=== PATIENT | female | born 2000 | race Caucasian/White ===

== ENCOUNTER 2023-08-20 14:52 | Emergency (ER) | payer OTHER ==
[2023-08-20 15:05] VITALS: O2SAT 98
[2023-08-20 15:44] VITALS: BP 140/77
[2023-08-20 15:52] LABS: BILIRUBIN,URINE NEGATIVE (NEGATIVE); GLUCOSE, URINE (UA) 500 mg/dL (NEGATIVE); KETONES,URINE (UA) NEGATIVE (NEGATIVE); LEUKOCYTE ESTERASE, URINE MODERATE (NEGATIVE); NITRITE,URINE POSITIVE (NEGATIVE); OCCULT BLOOD,URINE MODERATE (NEGATIVE); PROTEIN,URINE 100 mg/dL (NEGATIVE); UROBILINOGEN,URINE 0.2 (NORMAL) E.U./dL (NORMAL)
[2023-08-20] MEDS: KETOROLAC 30 MG/ML VIAL IVP STA (15:55)
[2023-08-20] MEDS: ACETAMINOPHEN 325 MG TABLET PO STA (15:56)
[2023-08-20 15:57] LABS: CLARITY,URINE HAZY (CLEAR); HCG UR QUAL NEGATIVE
[2023-08-20 16:02] LABS: BACTERIA,URINE Moderate /HPF (None Seen); SQUAMOUS EPITHELIAL CELL,UR RARE Squamous (<= Few); WBC,URINE >25 /HPF (0-5)
[2023-08-20] MEDS ORDERED: cefTRIAXone 1 GM in SODIUM CHLORIDE 0.9% MINIBAG 100 ML IV STA (16:11)
--- NOTE | 2023-08-20 16:26 | ED Physician Documentation ---
PD HPI FEMALE - Stated complaint Stated Complaint: BACK PX,COLE,CHILLS - Chief complaint Chief Complaint: Abd Pain - Additional information Additional information: 23-year-old female with no pertinent past medical history presents emergency department for 3 to 4 days of dysuria and today new right flank pain. She is not having chills at home she thinks it has been she has been having fevers without unsure. She says that she does have a new sexual partner and recently tried anal sex and did not cleanse between anal and vaginal penetration. PD PAST MEDICAL HISTORY - Past Medical History Past Medical History: Yes Psych: Depression, Anxiety - Past Surgical History Past Surgical History: No - Present Medications Home Medications: Ambulatory Orders Medication Instructions Recorded Confirmed Phenazopyridine HCl [Pyridium] 100 mg PO TID 2 Days #6 tablet 08/20/23 Sulfamethox/Trimeth 800/160 1 tablet PO BID 10 Days #20 tablet 08/20/23 [Bactrim Ds] - Allergies Allergies/Adverse Reactions: Allergies Allergy/AdvReac Type Severity Reaction Status Date / Time No Known Drug Allergies Allergy Verified 08/20/23 14:54 - Social History Does the pt smoke?: No Smoking Status: Never smoker Does the pt drink ETOH?: Yes Does the pt have substance abuse?: No - Immunizations Immunizations are current?: Yes - POLST Patient has POLST: No PD ED PE NORMAL - Vitals Vital signs reviewed: Yes - General General: Alert and oriented X 3, No acute distress, Well developed/nourished - HEENT HEENT: Atraumatic, PERRL, EOMI - Cardiac Cardiac: RRR, No murmur, No gallop, Strong equal pulses - Respiratory Respiratory: No respiratory distress, Clear bilaterally - Back Back: Other (Right CVA tenderness) Results - Vitals Vitals: Vital Signs - 24 hr 08/20/23 08/20/23 14:54 14:57 Temperature 36.6 C 101.7 C H Heart Rate 94 91 Respiratory 16 24 Rate Blood Pressure 135/70 H 140/77 H O2 Saturation 98 98 Oxygen O2 Source Room air - Labs Labs: Laboratory Tests 08/20/23 15:30 Urine Color YELLOW Urine Clarity HAZY Urine pH 6.0 Ur Specific [place] 1.020 Urine Protein 100 H Urine Glucose (UA) 500 H Urine Ketones NEGATIVE Urine Occult Blood MODERATE H Urine Nitrite POSITIVE H Urine Bilirubin NEGATIVE Urine Urobilinogen 0.2 (NORMAL) Ur Leukocyte Esterase MODERATE H Urine RBC 6-10 H Urine WBC >25 H Ur Squamous Epith Cells RARE Squamous Urine Bacteria Moderate H Ur Microscopic Review INDICATED Urine Culture Comments INDICATED Urine HCG, Qual NEGATIVE PD Medical Decision Making - ED course ED course: 23-year-old female presents emergency department for dysuria and right flank pain. Differentials include but are not limited to urinary tract infection, pyelonephritis, renal calculi, ovarian torsion. Urinalysis is positive for leukocytes and nitrites indicating urinary tract infection urine was sent for cultures. Given her right CVA tenderness I believe that patient is experiencing symptoms of pyelonephritis.She received a one-time dose of intramuscular Rocephin here in the emergency department and is started on antibiotic Bactrim outpatient. She is also been given Toradol for her pain as well as Pyridium for the dysuria. Patient was given ER return precautions. All questions answered I believe that she is safe for discharge at this time. Departure - Departure Disposition: 01 Home, Self Care Clinical Impression: Pyelonephritis UTI (urinary tract infection) Qualifiers: Urinary tract infection type: acute pyelonephritis Qualified Code(s): N10 - Acute pyelonephritis Instructions: Pyelonephritis Dc Prescriptions: Sulfamethox/Trimeth 800/160 [Bactrim Ds] 1 tablet PO BID 10 Days #20 tablet Phenazopyridine HCl [Pyridium] 100 mg PO TID 2 Days #6 tablet Comments: Thank you for trusting us with your care, we have evaluated you for your left flank pain and UTI symtpoms. We will culture your urine, the results should be done in 48-72 hours. If an antibiotic change is necessary we will call you. Return if worse in the meantime, especially if you develop increasing flank pain, fevers, or cannot keep down the medication. I have [facility] [place] you will take this twice a day for the next 10 days I have also sent a medication called Pyridium this is the medication that will turn your urine bright orange. Make sure that you are staying plenty well-hydrated and have a low threshold to come back to the emergency department for any of the worsening above symptoms. Forms: PCP List Discharge Date/Time: 08/20/23 17:02
[2023-08-20] MEDS ORDERED: LIDOCAINE 1% 2 ML VIAL MC ONE (16:45)
[2023-08-20] MEDS: PHENAZOPYRIDINE 100 MG TABLET PO STA (16:46)
[2023-08-20] MEDS: cefTRIAXone 1 GM VIAL IM STA (16:56)
== END 2023-08-20 17:02 | disposition home or self-care (01) ==
LOC: ED 14:52
DX: N39.0 Urinary tract infection, site not specified (principal); N12 Tubulo-interstitial nephritis, not specified as acute or chronic
CPT/HCPCS: 81001; 81003; 81025; 87086; 87181; 96374; 99283

== ENCOUNTER 2023-08-20 22:01 | Emergency (ER) | payer OTHER ==
[2023-08-20] MEDS: ONDANSETRON 4 MG/2 ML VIAL IVP STA (22:42)
[2023-08-20] MEDS: CIPROFLOXACIN 400 MG/200 ML 400 MG/200 ML BAG IV STA (22:45)
[2023-08-20 22:46] LABS: BASOPHILS # (AUTO) 0.1 10^3/uL (0.0-0.1); BASOPHILS % (AUTO) 0.4 %; EOSINOPHILS % (AUTO) 0.2 %; HCT - HEMATOCRIT 42.7 % (37.0-47.0); HGB - HEMOGLOBIN 14.3 g/dL (12.0-16.0); LYMPHOCYTES # (AUTO) 0.8 10^3/uL (1.5-3.5); LYMPHOCYTES % (AUTO) 5.8 %; MEAN CORPUSCULAR HEMOGLOBIN 29.2 pg (27.0-31.0); MEAN CORPUSCULAR HGB CONC 33.5 g/dL (32.0-36.0); MEAN CORPUSCULAR VOLUME 87.3 fL (81.0-99.0); MEAN PLATELET VOLUME 9.5 fL (7.9-10.8); MONOCYTES # (AUTO) 1.1 10^3/uL (0.0-1.0); MONOCYTES % (AUTO) 7.7 %; NEUTROPHILS # (AUTO) 12.1 10^3/uL (1.5-6.6); NEUTROPHILS % (AUTO) 85.6 %; PLT - PLATELET COUNT 312 10^3/uL (130-450); RED BLOOD COUNT 4.89 10^6/uL (4.20-5.40); RED CELL DISTRIBUTION WIDTH 12.7 % (12.0-15.0); WHITE BLOOD COUNT 14.1 x10^3/uL (4.8-10.8)
[2023-08-20] MEDS: SODIUM CHLORIDE 0.9% 1,000 ML IV STA (22:47)
[2023-08-20 23:06] LABS: ALBUMIN 4.5 g/dL (3.2-5.5); ALBUMIN/GLOBULIN RATIO 1.6 (1.0-2.2); BILIRUBIN,TOTAL 0.9 mg/dL (0.2-1.0); CALCIUM 10.1 mg/dL (8.5-10.3); CREATININE 0.7 mg/dL (0.6-1.3); POTASSIUM 3.5 mmol/L (3.5-4.5); TOTAL PROTEIN 7.3 g/dL (6.4-8.9)
--- NOTE | 2023-08-20 23:33 | ED Physician Documentation ---
History of Present Illness - Stated complaint Stated Complaint: CHILLS/NAUSEA - Chief complaint Chief Complaint: Resp - History obtained from History obtained from: Patient, Friend - History of Present Illness Timing: Today - Additonal information Additional information: Roxanna Sky is a 22-year-old female who was treated yesterday for pyelonephritis with Rocephin. She presents back to the emergency department today with ongoing fever and chills but with improved pain. She has persistence of nausea Review of Systems Constitutional: reports: Fever, Chills, Myalgias Ears: denies: Ear pain Nose: denies: Congestion Throat: denies: Sore throat Cardiac: denies: Chest pain / pressure, Palpitations Respiratory: denies: Dyspnea, Cough GI: reports: Abdominal Pain, Nausea. denies: Constipation, Diarrhea : reports: Dysuria, Frequency Skin: denies: Rash Musculoskeletal: reports: Back pain. denies: Neck pain PD PAST MEDICAL HISTORY - Past Medical History Past Medical History: Yes Respiratory: Asthma Psych: Depression, Anxiety, ADD/ADHD - Past Surgical History Past Surgical History: No - Present Medications Home Medications: Ambulatory Orders Medication Instructions Recorded Confirmed Phenazopyridine HCl [Pyridium] 100 mg PO TID 2 Days #6 tablet 08/20/23 Sulfamethox/Trimeth 800/160 1 tablet PO BID 10 Days #20 tablet 08/20/23 [Bactrim Ds] - Allergies Allergies/Adverse Reactions: Allergies Allergy/AdvReac Type Severity Reaction Status Date / Time No Known Drug Allergies Allergy Verified 08/20/23 22:15 - Social History Does the pt smoke?: No Smoking Status: Never smoker Does the pt drink ETOH?: Yes Does the pt have substance abuse?: No - Immunizations Immunizations are current?: Yes - POLST Patient has POLST: No PD ED PE NORMAL - Vitals Vital signs reviewed: Yes (Febrile) - General General: Alert and oriented X 3, No acute distress, Well developed/nourished - HEENT HEENT: Atraumatic, PERRL, EOMI - Neck Neck: Supple, no meningeal sign, No bony TTP - Cardiac Cardiac: RRR, No murmur - Respiratory Respiratory: No respiratory distress, Clear bilaterally - Abdomen Abdomen: Normal bowel sounds, Soft, Non tender, Non distended, No organomegaly - Back Back: No spinal TTP, Other (Minimal CVA tenderness) - Derm Derm: Normal color, Warm and dry, No rash - Extremities Extremities: No deformity, No edema - Neuro Neuro: Alert and oriented X 3, material lister 2-12 intact, No motor deficit, No sensory deficit, Normal speech Eye Opening: Spontaneous Motor: Obeys Commands Verbal: Oriented GCS Score: 15 - Psych Psych: Normal mood, Normal affect Results - Vitals Vitals: Vital Signs - 24 hr 08/20/23 08/20/23 22:05 23:44 Temperature 39.4 C H Heart Rate 99 88 Respiratory 16 16 Rate Blood Pressure 130/80 135/82 H O2 Saturation 98 96 Oxygen O2 Source Room air - Labs Labs: Laboratory Tests 08/20/23 08/20/23 22:41 22:41 WBC 14.1 H RBC 4.89 Hgb 14.3 Hct 42.7 MCV 87.3 MCH 29.2 MCHC 33.5 RDW 12.7 Plt Count 312 MPV 9.5 Neut # (Auto) 12.1 H Lymph # (Auto) 0.8 L Gem # (Auto) 1.1 H Eos # (Auto) 0.0 Baso # (Auto) 0.1 Absolute Nucleated RBC 0.00 Nucleated RBC % 0.0 Sodium 132 L Potassium 3.5 Chloride 100 L Carbon Dioxide 23 Anion Gap 9.0 BUN 11 Creatinine 0.7 Estimated GFR (MDRD) 104 Glucose 110 H Calcium 10.1 Total Bilirubin 0.9 AST 137 H ALT 112 H Alkaline Phosphatase 118 Total Protein 7.3 Albumin 4.5 Globulin 2.8 Albumin/Globulin Ratio 1.6 Lipase 21 PD Medical Decision Making - ED course Complexity details: reviewed old records, reviewed results, re-evaluated patient, considered differential, d/w patient, d/w family ED course: 22-year-old jil Sky presents back to the emerged part of persistent symptoms of pyelonephritis including fever and chills and nausea. She is treated for nausea with Zofran she is given a liter of fluid and 400 mg of Cip ro. We will continue her on her sulfamethoxazole trimethoprim which she has not filled yet. Departure - Departure Disposition: 01 Home, Self Care Clinical Impression: Pyelonephritis Condition: Stable Instructions: ED Kidney Infec Female Follow-Up: JESI PAINTING MD [Primary Care Provider] - Comments: Roxanna, today it looks like the organism in the urine is likely not sensitive to the Rocephin. We will have sensitivities for this organism in 2 days. Tonight we gave you a dose of Cipro and the recommendation is to fill the prescription for sulfamethoxazole trimethoprim and begin taking that tomorrow. Forms: PCP List Discharge Date/Time: 08/20/23 23:59
[2023-08-20] MEDS: ONDANSETRON ODT 4 MG Prepack 2 TL PRN (23:48)
[2023-08-20 23:52] VITALS: BP 135/82; O2SAT 96
--- NOTE | 2023-08-22 11:39 | ED Physician Documentation ---
ED Addendum - Addendum Addendum: 08/22/23 11:38 The patient's culture came back showing ESBL producing E. coli greater than 100,000 CFU's per mL. It is resistant to trimethoprim sulfa. She has been prescribed on Bactrim which is an appropriate first choice. It also is resistant to cefazolin and ceftriaxone so we will choose a quinolone. It is sensitive to both Cipro and Levaquin. She does not have any allergies to medicines. I will send a prescription for Cipro 500 twice a day for 7 days to [facility] pharmacy. It did sound like some kidney type involvement so we will extend it to a 7-day course. Will have nursing call the patient to advise to greens picker the new prescription.
== END 2023-08-20 23:59 | disposition home or self-care (01) ==
LOC: ED 22:01
DX: N12 Tubulo-interstitial nephritis, not specified as acute or chronic (principal); N39.0 Urinary tract infection, site not specified
CPT/HCPCS: 36415; 80053; 81001; 81025; 83690; 85025; 87086; 87181; 96365; 96372; 96374; 96375; 96376; 99283; A9270; 81003